=== PATIENT | male | born 1965 | race Caucasian/White ===

== ENCOUNTER → 2023-04-14 07:15 | Day surgery (SDC) | payer OTHER, SELFPAY | LOC: GI 07:15 | PROVIDERS: ATTENDING PHYSICIAN Internal Medicine Gastroenterology | DX: Z12.11 Encounter for screening for malignant neoplasm of colon (principal); D17.79 Benign lipomatous neoplasm of other sites; K64.8 Other hemorrhoids; Z86.010 Personal history of colon polyps | CPT/HCPCS: G0105 ==

== ENCOUNTER 2025-01-28 06:16 | Day surgery (SDC) | payer OTHER, SELFPAY ==
[2025-01-24 09:12] VITALS: BMI 30.8
[2025-01-24 11:35] LABS: Hematocrit 45.4 % (39.0-52.0); Hemoglobin 15.3 g/dL (13.0-18.0); Mean Corp Hgb Conc. 33.7 g/dL (33.0-37.0); Mean Corpuscular Volume 97.6 fL (80.0-94.0); Nucleated Red Blood Cells % 0 % (-); Platelet Count 181 10^3/uL (130-400); Red Cell Dist. Width 12.2 % (11.5-14.5)
[2025-01-24 12:08] LABS: Blood Urea Nitrogen 15 mg/dl (9-20); Calcium 9.3 mg/dl (8.4-10.2); Carbon Dioxide 31 mmol/L (22-30); Chloride 102 mmol/L (98-107); Estimated Creatinine Clearance 94 ml/min; Glucose 109 mg/dl (70-99); Potassium 4.8 mmol/L (3.5-5.1); Sodium 137 mmol/L (135-145); eGFR > 60.00
[2025-01-28 13:04] VITALS: BMI 30.8
[2025-01-28 13:05] VITALS: BP 144/82
[2025-01-28] MEDS: TYLENOL 1000 MG PO (13:16)
[2025-01-28] MEDS: NORMOSOL-R/PLASMALYTE-A 1000 IV (13:16)
[2025-01-28 15:33] VITALS: BP 130/83; BP 144/82
[2025-01-28 15:46] VITALS: BP 141/94
--- NOTE | 2025-01-28 15:49 | W.IMMPOSTOP ---
Surgical Immed Post Op Note
-
Primary Surgeon: Wyatt Briggs MD
Assisting Surgeon:
Pre-op Diagnosis: left knee medial meniscus tear
Post-op Diagnosis: left knee medial meniscus tear, arthritis
Procedure Performed: arthroscopic left knee partial medial meniscectomy
Anesthesia Type: general
Specimen / Cultures: none
Estimated Blood Loss: minimal
Complications: none apparent
Operative Findings: posterior horn medial meniscus tear, grade 4 chondrosis medial femoral condyle
Operative dictation #:[id number]
[2025-01-28 15:54] VITALS: BP 120/67
[2025-01-28 16:10] VITALS: BP 119/65
[2025-01-28 16:25] VITALS: BP 121/67
== END 2025-01-28 17:02 | disposition home or self-care (01) ==
LOC: SDS 06:16
PROVIDERS: ATTENDING PHYSICIAN Student in an Organized Health Care Education/Training Program; FAMILY PHYSICIAN Family Medicine
DX: S83.242A Other tear of medial meniscus, current injury, left knee, initial encounter (principal); X58.XXXA Exposure to other specified factors, initial encounter; M94.262 Chondromalacia, left knee; M17.12 Unilateral primary osteoarthritis, left knee
CPT/HCPCS: 29881; 36415; 80048; 85025; 93005